=== PATIENT | female | born 1935 | race Caucasian/White ===

== ENCOUNTER 2018-12-03 13:31 | Emergency (ER) | payer OTHER ==
[2018-12-03 13:44] VITALS: BP 190/95; PULSE 66; TEMP 97.8; BMI 27.3
--- NOTE | 2018-12-03 14:00 | PDOC ---
History of Present Illness - General Chief Complaint: Pain Stated Complaint: right knee and b/l leg an dhip pain Time Seen by Provider: 12/03/18 13:48 History Source: Patient Exam Limitations: No Limitations, Language Barrier - History of Present Illness Initial Comments: Ne Law is an 83 yo F w a pmh of HTN, HCL, and lumbar spinal stenosis who presents to the [place] [facility] with one week of right lower back pain which radiates down her right leg. The patient states that it started last Saturday, came on slowly, and has advanced to the point where the patient is having difficulty walking and performing her ADL. She saw her PCP regarding this problem on Saturday who prescribed her meloxicam and told her to take PRN NSAIDs. The patient has taken meloxicam and advil since Saturday with minimal relief. The patient usually can walk up the stairs in her home without difficulty but for the past few days she cannot walk up or down stairs and is having trouble even standing up. The patient states she frequently receives shots in her back but her doctor has been out of town and she can't receive her shots today. She requests to have a cortisone shot here in the ED. The patient also believes her right leg is mildly more swollen than her left leg. She states that her legs have always swelled up and this is not new. She takes lasix chronically for her leg swelling. Denies fevers, chest pain, SOB, difficulty breathing, or any trauma. PCP: Deepali Moore Allergies: NKA, NKDA Social Hx: Lives alone and is independent in her ADL. Denies any recent smoking , drinking, or other substance usage. Past History - Past Medical History Allergies/Adverse Reactions: Allergies Allergy/AdvReac Type Severity Reaction Status Date / Time No Known Allergies Allergy Verified 12/03/18 13:34 Home Medications: Ambulatory Orders Furosemide [Lasix] 0 mg PO 12/03/18 Meloxicam [Mobic] 15 mg PO DAILY 12/03/18 Metoprolol Succinate [Toprol Xl] 50 mg PO DAILY 12/03/18 Simvastatin [Zocor -] 40 mg PO HS 12/03/18 COPD: No CHF: Yes HTN: Yes Hypercholesterolemia: Yes Other medical history: Arthritis - Immunization History Td Vaccination: No - Psycho Social/Smoking Cessation Hx Smoking Status: No Smoking History: Never smoked Number of Cigarettes Smoked Daily: 0 Cigars Per Day: 0 Hx Alcohol Use: No Drug/Substance Use Hx: No Review of Systems - Review of Systems Able to Perform ROS?: Yes Comments:: CONSTITUTIONAL: Absent: fever, no chills, no fatigue EYES: Absent: visual changes ENT: Absent: ear pain, no sore throat CARDIOVASCULAR: Absent: chest pain, no palpitations RESPIRATORY: Absent: cough, no SOB GI: Absent: abdominal pain, no nausea, no vomiting, no constipation, no diarrhea GENITOURINARY: Absent: dysuria, no frequency, no hematuria MUSKULOSKELETAL: Present: Back pain, arthralgia Absent: no myalgia SKIN: Absent: rash NEURO: Absent: headache *Physical Exam - Vital Signs Last Vital Signs Temp Pulse Resp BP Pulse Ox 97.8 F 66 19 190/95 H 96 12/03/18 13:34 12/03/18 13:34 12/03/18 13:34 12/03/18 13:34 12/03/18 13:34 - Physical Exam Comments: GENERAL: Well-appearing, well-nourished. No apparent distress. HEENT: Normocephalic, atraumatic. PERRL, EOM intact. CARDIOVASCULAR: Normal S1, S2. Regular rate and rhythm. PULMONARY: No evidence of respiratory distress. Lungs clear to auscultation bilaterally. No wheezing, rales or rhonchi. ABDOMEN: Soft, non-distended, non-tender. EXTREMITIES: Limited ROM in lower extremities. 2+ edema bilaterally. There is no erythema or warmth on either leg. No gross deformities. SKIN: Warm, dry. No rash NEUROLOGICAL: No focal neurological deficits. Medical Decision Making - Medical Decision Making Ne Law is an 83 yo F w a pmh of HTN, HCL, and lumbar spinal stenosis who presents to the [place] ER with one week of right lower back pain which radiates down her right leg. The patient states that it started last Saturday, came on slowly, and has advanced to the point where the patient is having difficulty walking and performing her ADL. She saw her PCP regarding this problem on Saturday who prescribed her meloxicam and told her to take PRN NSAIDs. The patient has taken meloxicam and advil since Saturday with minimal relief. The patient usually can walk up the stairs in her home without difficulty but for the past few days she cannot walk up or down stairs and is having trouble even standing up. The patient states she frequently receives shots in her back but her doctor has been out of town and she can't receive her shots today. She requests to have a cortisone shot here in the ED. The patient also believes her right leg is mildly more swollen than her left leg. She states that her legs have always swelled up and this is not new. She takes lasix chronically for her leg swelling. - Patient had an x-ray at her PCP saturday which was negative. Vital Signs Temp Pulse Resp BP Pulse Ox 97.8 F 66 19 190/95 H 96 12/03/18 13:34 12/03/18 13:34 12/03/18 13:34 12/03/18 13:34 12/03/18 13:34 DDx IBNLT: Sciatica/herniated disc, nerve entrapment/impingement, MSK pain, DVT Plan: Analgesia, Duplex, DC w PCP fu Duplex: negative for DVT Disposition: Home with PCP fu Discharge - Discharge Information Problems reviewed: Yes Clinical Impression/Diagnosis: Difficulty walking Leg pain Qualifiers: Laterality: right Qualified Code(s): M79.604 - Pain in right leg Condition: Fair Disposition: HOME - Admission No - Follow up/Referral Referrals: Deepali Moore MD [Primary Care Provider] - - Patient Discharge Instructions Patient Printed Discharge Instructions: DI for Leg Pain Additional Instructions: You came into the ER asking for a steroid shot. These are typically given at your primary care doctors office. Please make sure to follow up with your primary care doctor in the next 3 to 5 days to make sure your pain is being delt with and getting better. Come back to the ER if your pain worsens, you have trouble walking, have any chest or back pain or have any other new or worsening concerns. Thank you for coming to the [place] [facility]. We hope you feel better soon! Print Language: FRENCH - Post Discharge Activity
[2018-12-03] MEDS ORDERED: ACETAMINOPHEN 325 MG TABLET (FP) PO ONE (14:01)
[2018-12-03] MEDS ORDERED: CYCLOBENZAPRINE HCL 10 MG TABLET (FP) PO ONE (14:02)
[2018-12-03] MEDS ORDERED: LIDOCAINE 5% TOPICAL PATCH TP ONE (14:02)
[2018-12-03] MEDS ORDERED: ACETAMINOPHEN 325 MG TABLET (FP) ONE (14:08)
[2018-12-03] MEDS ORDERED: LIDOCAINE 5% TOPICAL PATCH ONE (14:08)
[2018-12-03] MEDS ORDERED: CYCLOBENZAPRINE HCL 10 MG TABLET (FP) ONE (14:08)
[2018-12-03] MEDS ORDERED: KETOROLAC TROMETHAMINE 60 MG/2 ML VIAL IM ONE (16:03)
[2018-12-03] MEDS ORDERED: KETOROLAC TROMETHAMINE 30 MG/1 ML VIAL ONE (16:13)
[2018-12-03] MEDS ORDERED: LIDOCAINE PATCH REMOVAL MC SCH (22:00)
== END 2018-12-03 16:25 | disposition home or self-care (01) ==
LOC: FER 13:31
PROC: 3E0233Z Introduction of Anti-inflammatory into Muscle, Percutaneous Approach (ICD-10-PCS; principal; 2018-12-03)
DX: R26.2 Difficulty in walking, not elsewhere classified (principal); M79.604 Pain in right leg; I10 Essential (primary) hypertension; E78.5 Hyperlipidemia, unspecified; M19.90 Unspecified osteoarthritis, unspecified site
CPT/HCPCS: 93970-TC; 99282-25